=== PATIENT | female | born 2000 | race African-American/Black ===

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

== ENCOUNTER 2021-06-13 11:06 | Emergency (ER) | payer BC, MEDICAID ==
[~2021-06-13] VITALS: Ht 152 cm; Wt 45.4 kg
[~2021-06-13 11:06] MED LIST: ONDA4TAB8 SL; RT-ALBUINH IH
[2021-06-13] MEDS ORDERED: LORazepam INJ 2 MG/ML (ATIVAN) VIAL IVP STA (11:50)
--- NOTE | 2021-06-13 11:56 | ED Abdominal Pain ---
General Stated Complaint: MONO,R EAR PAIN, CONGESTION, RIB PAIN Source of Information: Patient, Family (mom) Exam Limitations: No Limitations History of Present Illness Date Seen by Provider: Jun 13, 2021 Time Seen by Provider: 11:40 Initial Comments Patient is a 20-year-old female brought to the emergency department by her mother with a chief complaint of abdominal pain. Patient is in a great degree of distress and does not really participate in the interview, crying, rolling around in the bed holding onto her abdomen. Mom states that she started getting sick about 7 days ago. Was seen at [facility] 4 days ago diagnosed with mono and an ear infection. Reportedly was Covid negative. According to mom was not given any antibiotics but was sent home with a prescription for pain medications which she did not fill. Mom states that she got worse at about 3:00 this morning with increased abdominal pain. She did have an episode of nausea and vomiting. Past medical history significant for "asthma". Timing/Duration: 4-6 Hours Severity/Quality: Severe, Cramping Location: Epigastric, Generalized Abdomen Radiation: No Radiation Activities at Onset: None Associated Symptoms: Nausea/Vomiting Allergies and Home Medications Allergies Coded Allergies: No Known Drug Allergies (Unverified , 03/22/18) Patient Home Medication List Home Medication List Reviewed: Yes Albuterol Sulfate (Proair Hfa) 1 Puff Puff, 2 PUFF IH Q4H PRN for SHORTNESS OF BREATH, (Reported) Entered as Reported by: ALBARO GAMBOA on 03/22/18 1501 Ondansetron (Zofran Odt) 4 Mg Tab.rapdis, 4 MG SL Q4H PRN for NAUSEA/VOMITING- 1ST LINE Prescribed by: AMARIS KATZ on 03/22/18 1628 Review of Systems Review of Systems Constitutional: see HPI Respiratory: Cough Cardiovascular: No Symptoms Reported Gastrointestinal: Abdominal Pain Genitourinary: No Symptoms Reported Musculoskeletal: no symptoms reported Skin: no symptoms reported Psychiatric/Neurological: Anxiety All Other Systems Reviewed Negative Unless Noted: Yes Past Dgpmarc-Ufhool-Vcdxuq Hx Seasonal Allergies Seasonal Allergies: No Past Medical History Surgeries: No Respiratory: Yes Asthma Cardiac: No Neurological: No Integumentary: No Physical Exam Vital Signs Vital Signs - First Documented 06/13/21 11:37 Temp 37.2 Pulse 131 Resp 22 B/P (MAP) 103/76 (85) Pulse Ox 100 O2 Delivery Room Air Capillary Refill : Height/Weight/BMI Height: 5'1.00" Weight: 140lbs. oz. 63.200694kt; 21.09 BMI Method:Stated General Appearance: WD/WN, severe distress HEENT: PERRL/EOMI, TMs normal (Occluded by cerumen bilateral), pharynx normal Neck: supple, normal inspection Respiratory: lungs clear, normal breath sounds, no respiratory distress, no accessory muscle use Cardiovascular: regular rate, rhythm, tachycardia (122) Gastrointestinal: normal bowel sounds, distended, guarding, tenderness Extremities: normal range of motion, non-tender, normal inspection, no pedal edema, no calf tenderness Neurologic/Psychiatric: alert, other (Crying, rolling around on the bed, severe emotional distress) Skin: normal color, warm/dry Progress/Results/Core Measures Results/Orders Lab Results Laboratory Tests Test 06/13/21 11:52 Range/Units White Blood Count 7.6 4.3-11.0 10^3/uL Red Blood Count 4.39 3.80-5.11 10^6/uL Hemoglobin 13.9 11.5-16.0 g/dL Hematocrit 42 35-52 % Mean Corpuscular Volume 96 80-99 fL Mean Corpuscular Hemoglobin 32 25-34 pg Mean Corpuscular Hemoglobin Concent 33 32-36 g/dL Red Cell Distribution Width 11.6 10.0-14.5 % Platelet Count 209 130-400 10^3/uL Mean Platelet Volume 9.8 9.0-12.2 fL Immature Granulocyte % (Auto) 0 % Neutrophils (%) (Auto) 82 H 42-75 % Lymphocytes (%) (Auto) 7 L 12-44 % Monocytes (%) (Auto) 11 0-12 % Eosinophils (%) (Auto) 0 0-10 % Basophils (%) (Auto) 0 0-10 % Neutrophils # (Auto) 6.2 1.8-7.8 10^3/uL Lymphocytes # (Auto) 0.5 L 1.0-4.0 10^3/uL Monocytes # (Auto) 0.8 0.0-1.0 10^3/uL Eosinophils # (Auto) 0.0 0.0-0.3 10^3/uL Basophils # (Auto) 0.0 0.0-0.1 10^3/uL Immature Granulocyte # (Auto) 0.0 0.0-0.1 10^3/uL Neutrophils % (Manual) 87 % Lymphocytes % (Manual) 7 % Monocytes % (Manual) 5 % Band Neutrophils 1 % Blood Morphology Comment NORMAL Sodium Level 136 135-145 MMOL/L Potassium Level 3.9 3.6-5.0 MMOL/L Chloride Level 104 98-107 MMOL/L Carbon Dioxide Level 21 21-32 MMOL/L Anion Gap 11 5-14 MMOL/L Blood Urea Nitrogen 5 L 7-18 MG/DL Creatinine 0.82 0.60-1.30 MG/DL Estimat Glomerular Filtration Rate 109 BUN/Creatinine Ratio 6 Glucose Level 98 70-105 MG/DL Calcium Level 9.6 8.5-10.1 MG/DL Corrected Calcium 9.2 8.5-10.1 MG/DL Total Bilirubin 0.5 0.1-1.0 MG/DL Aspartate Amino Transf (AST/SGOT) 14 5-34 U/L Alanine Aminotransferase (ALT/SGPT) 10 0-55 U/L Alkaline Phosphatase 60 40-136 U/L Total Protein 8.0 6.4-8.2 GM/DL Albumin 4.5 3.2-4.5 GM/DL My Orders Orders - VIVEK FOY MD Ed Iv/Invasive Line Start (06/13/21 11:50) Cbc With Automated Diff (06/13/21 11:50) Comprehensive Metabolic Panel (06/13/21 11:50) Hcg,Qualitative Urine (06/13/21 11:50) Ketorolac Injection (Toradol Injection) (06/13/21 12:00) Ondansetron Injection (Zofran Injectio (06/13/21 12:00) Lorazepam Injection (Ativan Injection) (06/13/21 11:50) Manual Differential (06/13/21 11:52) Medications Given in ED Current Medications Medications Dose Ordered Sig/Shaun Route Start Time Stop Time Status Last Admin Dose Admin Ketorolac Tromethamine 15 mg ONCE ONCE IVP 06/13/21 12:00 06/13/21 12:01 DC 06/13/21 12:05 15 MG Ondansetron HCl 4 mg ONCE ONCE IVP 06/13/21 12:00 06/13/21 12:01 DC 06/13/21 12:03 4 MG Vital Signs/I&O 06/13/21 11:37 Temp 37.2 Pulse 131 Resp 22 B/P (MAP) 103/76 (85) Pulse Ox 100 O2 Delivery Room Air Progress Progress Note : Time: 13:34 Progress Note Patient reevaluated, resting very comfortably. She denies dysuria, urgency or frequency. No rashes. Abdominal exam is soft, no splenomegaly is palpated. She has no evidence of rebound or guarding. I have reviewed her labs everything is within normal limits. Will order Zofran for home as well as hydrocodone elixir. Advised mom to push fluids, pain medicines as needed. Return precautions given. She verbalized understanding. All questions are sought and answered Departure Impression Primary Impression: Abdominal pain Qualified Codes: R10.84 - Generalized abdominal pain Additional Impressions: recent diagnosis of [place] Anxiety attack Disposition: HOME, SELF-CARE Condition: Stable Departure-Patient Inst. Decision time for Depature: 13:36 Referrals: [facility] NNAMDI,LOCAL PHYSICIAN (PCP) Primary Care Physician Patient Instructions: Abdominal Pain, Adult ED, Panic Attack ED Add. Discharge Instructions: Drink plenty of fluids to stay well-hydrated. You should take jkel-iwv-afvlkma ibuprofen, 3 tablets which is 600 mg every 6-8 hours with food as needed for pain. You can also take Tylenol. I have written you a prescription for hydrocodone syrup. 1 teaspoon every 4-6 hours as needed for more severe pain. I have also sent a prescription for Zofran/ondansetron which is a nausea medication you can take every 8 hours. Get plenty of rest. Follow-up in a couple of weeks with a primary care provider. Return to the emergency department for any new, concerning or emergent complaints. Scripts Hydrocodone/Acetaminophen (Hydrocodone-Acetamn 7.5-325/15) 118 Ml Solution 5 ML PO Q6H PRN for PAIN-SEVERE (8-10), #60 ML Prov: VIVEK FOY MD 06/13/21 Ondansetron (Ondansetron Odt) 4 Mg Tab.rapdis 4 MG PO Q8H PRN for nausea, #12 TAB Prov: VIVEK FOY MD 06/13/21 VIVEK FOY MD Jun 13, 2021 11:56
[2021-06-13 11:59] LABS: BASOPHILS % (AUTO) 0 % (0-10); EOSINOPHILS % (AUTO) 0 % (0-10); HEMATOCRIT 42 % (35-52); HEMOGLOBIN 13.9 g/dL (11.5-16.0); LYMPHOCYTES # (AUTO) 0.5 10^3/uL (1.0-4.0); LYMPHOCYTES % (AUTO) 7 % (12-44); MEAN CORPUSCULAR HEMOGLOBIN 32 pg (25-34); MEAN CORPUSCULAR HGB CONC 33 g/dL (32-36); MEAN CORPUSCULAR VOLUME 96 fL (80-99); MEAN PLATELET VOLUME 9.8 fL (9.0-12.2); MONOCYTES # (AUTO) 0.8 10^3/uL (0.0-1.0); MONOCYTES % (AUTO) 11 % (0-12); NEUTROPHILS # (AUTO) 6.2 10^3/uL (1.8-7.8); NEUTROPHILS % (AUTO) 82 % (42-75); PLATELET COUNT 209 10^3/uL (130-400); WHITE BLOOD COUNT 7.6 10^3/uL (4.3-11.0)
[2021-06-13] MEDS ORDERED: ONDANSETRON 4 MG/2 ML (SDV) Z0FRAN IVP ONE (12:00)
[2021-06-13] MEDS ORDERED: KETOROLAC 30 MG/ML VIAL IVP ONE (12:00)
[2021-06-13 12:14] LABS: ALBUMIN 4.5 GM/DL (3.2-4.5); BAND NEUTROPHILS 1 %; LYMPHOCYTES % (MANUAL) 7 %; MONOCYTES % (MANUAL) 5 %; NEUTROPHILS % (MANUAL) 87 %; RBC MORPH NORMAL
[2021-06-13 12:15] LABS: POTASSIUM 3.9 MMOL/L (3.6-5.0)
[2021-06-13 12:16] LABS: CALCIUM 9.6 MG/DL (8.5-10.1)
[2021-06-13 12:19] LABS: BILIRUBIN,TOTAL 0.5 MG/DL (0.1-1.0)
[2021-06-13 12:21] LABS: CREATININE SERUM 0.82 MG/DL (0.60-1.30)
[2021-06-13] MEDS ORDERED: HYDR118S10 PO (13:38)
[2021-06-13] MEDS ORDERED: ONDA4TAB11 PO (13:38)
[2021-06-13 13:42] VITALS: BP 92/41
[2021-06-14] MEDS ORDERED: ACHD5005 PO (00:26)
== END 2021-06-13 13:22 | disposition home or self-care (01) ==
LOC: EDUNIT# 11:06 → ER 11:09
DX: R10.84 Generalized abdominal pain (principal); B27.90 Infectious mononucleosis, unspecified without complication; F41.9 Anxiety disorder, unspecified; J45.909 Unspecified asthma, uncomplicated
CPT/HCPCS: 36415; 80053; 85007; 85027

== ENCOUNTER 2021-06-13 22:14 | Emergency (ER) | payer BC ==
[~2021-06-13] VITALS: Ht 154.9 cm; Wt 52.7 kg
[~2021-06-13 22:14] MED LIST changes: +HYDR118S10 PO; +ONDA4TAB11 PO
[2021-06-13] MEDS ORDERED: morphine INJ 10 MG/ML 1ML (SYR OR VIAL) IVP STA (22:18)
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
[2021-06-13 22:28] LABS: BASOPHILS % (AUTO) 1 % (0-10); EOSINOPHILS % (AUTO) 0 % (0-10); HEMATOCRIT 41 % (35-52); HEMOGLOBIN 13.7 g/dL (11.5-16.0); LYMPHOCYTES # (AUTO) 0.7 10^3/uL (1.0-4.0); LYMPHOCYTES % (AUTO) 15 % (12-44); MEAN CORPUSCULAR HEMOGLOBIN 32 pg (25-34); MEAN CORPUSCULAR HGB CONC 33 g/dL (32-36); MEAN CORPUSCULAR VOLUME 95 fL (80-99); MEAN PLATELET VOLUME 10.1 fL (9.0-12.2); MONOCYTES # (AUTO) 0.9 10^3/uL (0.0-1.0); MONOCYTES % (AUTO) 18 % (0-12); NEUTROPHILS # (AUTO) 3.2 10^3/uL (1.8-7.8); NEUTROPHILS % (AUTO) 66 % (42-75); PLATELET COUNT 205 10^3/uL (130-400); WHITE BLOOD COUNT 4.9 10^3/uL (4.3-11.0)
[2021-06-13] MEDS ORDERED: LACTATED RINGERS 1,000 ML IV ONE (22:30)
[2021-06-13] MEDS ORDERED: ONDANSETRON 4 MG/2 ML (SDV) Z0FRAN ONE (22:36)
[2021-06-13 22:38] LABS: POTASSIUM 3.5 MMOL/L (3.6-5.0)
[2021-06-13 22:39] LABS: CALCIUM 9.6 MG/DL (8.5-10.1)
[2021-06-13 22:44] LABS: CREATININE SERUM 0.85 MG/DL (0.60-1.30)
[2021-06-13] MEDS ORDERED: ONDANSETRON 4 MG/2 ML (SDV) Z0FRAN IVP ONE (22:45)
[2021-06-13] MEDS ORDERED: CATHETER FLUSH 10 ML SYR IV PRN (23:30)
[2021-06-13] MEDS ORDERED: IOHEXOL 350 MG/ML 150 ML (OMNIPAQUE 350) VIAL IV ONE (23:30)
[2021-06-13] MEDS ORDERED: HOLD METFORMIN - RECEIVED CONTRAST 20 ML VIAL IV SCH (23:30)
[2021-06-13] MEDS ORDERED: NS 100 ML (IVPB) BAG IV ONE (23:30)
[2021-06-14 00:04] LABS: LYMPHOCYTES % (MANUAL) 12 %; MONOCYTES % (MANUAL) 20 %; NEUTROPHILS % (MANUAL) 68 %
[2021-06-14 00:05] LABS: RBC MORPH NORMAL
[2021-06-14] MEDS ORDERED: ACHD5005 PO (00:26)
[2021-06-14] MEDS ORDERED: KETOROLAC 30 MG/ML VIAL IVP ONE (00:45)
[2021-06-14 00:50] VITALS: BP 118/67
--- NOTE | 2021-06-14 07:03 | Diagnostic Imaging Report ---
PROCEDURE: CT abdomen and pelvis with contrast, rule out appendicitis. TECHNIQUE: Multiple contiguous axial images were obtained through the abdomen and pelvis after the administration of intravenous contrast. All CT scans use one or more of the following dose optimizing techniques: automated exposure control, MA and/or KvP adjustment based on patient size and exam type or iterative reconstruction. INDICATION: Abdominal pain. Concern for appendicitis. COMPARISON: None available. FINDINGS: The lung bases are clear. The visualized heart is normal in size. Evaluation of the abdomen is somewhat limited by a generalized paucity of intra-abdominal fat. The liver, gallbladder, spleen, pancreas and adrenal glands are normal. There is no biliary or pancreatic ductal dilatation. The kidneys are symmetric in size and demonstrate normal enhancement. There is a 2 mm calyceal calculus in the upper pole collecting system of the left kidney. There is no renal calculus on the right. There is no hydronephrosis on either side. A subcentimeter focus of low-attenuation in the lower pole the left kidney is too small to characterize but likely represents a benign cyst or tiny angiomyolipoma and is of doubtful clinical significance. No further follow-up is recommended for this. The ureters are not well seen. The stomach and duodenum are unremarkable. Small bowel and colon are normal in course and caliber, without evidence of wall thickening or obstruction. The appendix is not definitely visualized. There are no findings to suggest acute appendicitis. There is no pneumoperitoneum, abdominal free fluid or loculated collection. There is mild fluid distention of the endometrium, which may be related to menses. Uterus is otherwise unremarkable. There is no suspicious adnexal mass or pelvic free fluid. There is mild circumferential thickening of the bladder, however, the bladder is not well-distended. No lymphadenopathy is appreciated. The aorta is nonaneurysmal. There is no evidence of venous thrombosis. The abdominal wall is unremarkable. No acute osseous abnormality is demonstrated. IMPRESSION: There is mild circumferential thickening of the bladder, which may be related to underdistention. Cystitis should be excluded on a clinical basis. Otherwise, no acute abdominal or pelvic pathology and no findings to account for the patient's pain. Appendix is not definitely visualized, however, there are no findings to suggest acute appendicitis. Findings are in agreement with initial teleradiology report. Dictated by: Dictated on workstation # [id number]
== END 2021-06-14 00:58 | disposition home or self-care (01) ==
LOC: EDUNIT# 22:14 → ER 22:15
DX: B27.90 Infectious mononucleosis, unspecified without complication (principal); J45.909 Unspecified asthma, uncomplicated
CPT/HCPCS: 36415; 74177; 80048; 84703; 85007; 85027; 86141